=== PATIENT | female | born 1955 | race Caucasian/White ===

== ENCOUNTER 2019-03-24 05:10 | Inpatient (IN) ==
[2019-03-18 10:18] LABS: HEMOGLOBIN 14.8 g/dL (12.0-16.0); MCH 29.7 PG (27-31); MCHC 32.9 g/dL (33-37); MCV 90.4 FL (81-99); MPV 10.4 FL (7.4-10.4); RBC 4.98 XMIL (4.2-5.4); RDW 14.5 % (11.5-14.5); WBC 12.66 X1000 (4.8-10.8)
--- NOTE | 2019-03-18 10:22 | EKG Report ---
Test Performed on : 03/18/2019 10:10:44 AM Test Reason : pat Blood Pressure : / mmHG Vent. Rate : 051 BPM Atrial Rate : 051 BPM P-R Int : 198 ms QRS Dur : 082 ms QT Int : 440 ms P-R-T Axes : 033 020 024 degrees QTc Int : 405 ms Sinus bradycardia. Nonspecific ST abnormality (minimal) Borderline ECG When compared with ECG of 28-APR-2018 08:42, No significant change was found Confirmed by Chichi JEFFREY, Christiano Lopez ([id number]) on 03/19/2019 8:22:35 AM
[2019-03-18 10:51] LABS: AGAP 14; BUN 18 mg/dL (8-22); CALCIUM 9.1 mg/dL (8.8-10.2); CHLORIDE 97 mmol/L (98-107); COSMO 278; CREATININE 0.8 mg/dL (0.5-0.9); ESTIMATED GFR > 60; GLUCOSE 103 mg/dL (70-104); POTASSIUM 3.4 mmol/L (3.5-5.1); SODIUM 138 mmol/L (136-145); TCO2 27 mmol/L (25-35)
[2019-03-24] MEDS ORDERED: LR 1,000 ML ONE ×2 (05:44→06:32)
[2019-03-24] MEDS ORDERED: INVANZ 1 GM/NS 1 GM/50 ML IVPB ONE (05:44)
[2019-03-24] MEDS ORDERED: ENTEREG ONE (05:44)
[2019-03-24] MEDS ORDERED: DIPRIVAN 1% ONE (06:30)
[2019-03-24] MEDS ORDERED: ZEMURON ONE ×4 (06:30→10:01)
[2019-03-24] MEDS ORDERED: XYLOCAINE-MPF 2% ONE (06:30)
[2019-03-24] MEDS ORDERED: SENSORCAINE 0.25%/EPI 1:200,000 ONE (06:32)
[2019-03-24] MEDS ORDERED: ZOFRAN ONE (07:01)
[2019-03-24] MEDS ORDERED: OFIRMEV 1000 MG/ISOTONIC SOLN 1,000 MG/100 ML BOTTLE ONE (07:01)
[2019-03-24] MEDS ORDERED: DECADRON ONE (07:01)
[2019-03-24] MEDS ORDERED: ROBINUL ONE ×2 (07:11→10:11)
[2019-03-24 08:08] LABS: URINE SOURCE CATH
[2019-03-24 08:13] LABS: BILIRUBIN URINE NEGATIVE (NEGATIVE); BLOOD URINE NEGATIVE (NEGATIVE); COLOR YELLOW; GLUCOSE URINE NEGATIVE (NEGATIVE); KETONE URINE 20 mg/dL (NEGATIVE); LEUKOCYTES URINE NEGATIVE (NEGATIVE); NITRITE URINE NEGATIVE (NEGATIVE); PH URINE 5.5; PROTEIN URINE NEGATIVE (NEGATIVE); TURBIDITY URINE CLEAR (CLEAR); UROBILINOGEN URINE NORMAL (NORMAL)
[2019-03-24 08:14] LABS: UR EPITHELIAL CELLS <10 /HPF (<10); URINE BACTERIA NEGATIVE /HPF; URINE RBC <10 /HPF (<10); URINE WBC <10 /HPF (<10)
[2019-03-24] MEDS ORDERED: EPHEDRINE ONE (09:31)
[2019-03-24] MEDS ORDERED: NEOSTIGMINE ONE (10:12)
[2019-03-24] MEDS ORDERED: DILAUDID ONE ×2 (10:21→11:07)
[2019-03-24] MEDS: DILAUDID ONE ×2 (11:01→11:04)
[2019-03-24] MEDS ORDERED: TORADOL ONE (11:29)
[2019-03-24] MEDS ORDERED: D5 1/2 NS + KCL 20 MEQ 1,000 ML ONE (11:30)
[2019-03-24] MEDS ORDERED: TORADOL IV ONE (11:30)
[2019-03-24] MEDS: D5 1/2 NS + KCL 20 MEQ 1,000 ML IV SCH ×3 (12:30→22:23)
[2019-03-24] MEDS ORDERED: ZOFRAN IV PRN (12:30)
[2019-03-24] MEDS: MORPHINE INJ PRN ×2 (14:39→18:55)
[2019-03-24] MEDS: OFIRMEV 1000 MG/ISOTONIC SOLN 1,000 MG/100 ML BOTTLE IV SCH ×2 (14:40→22:23)
--- NOTE | 2019-03-24 14:56 | OPERATIVE NOTE ---
PROCEDURE DATE: 03/24/2019 PREOPERATIVE DIAGNOSIS: Sigmoid colon stricture secondary to repeated bouts of acute sigmoid diverticulitis. POSTOPERATIVE DIAGNOSIS: Sigmoid colon stricture secondary to repeated bouts of acute sigmoid diverticulitis. PRINCIPAL PROCEDURE: Hand-assisted robotic laparoscopic low anterior colon resection. SURGEON: Julia Mobley MD. PREPRESS OPERATOR: Dr. Misbah Sung. ANESTHESIA: General. ESTIMATED BLOOD LOSS: 100 mL. DRAINS: None. INDICATIONS: Ms. Myrna Payne is a 63-year-old white female patient of Dr. Bella, who has had a history of sigmoid diverticulitis and she has developed a mid sigmoid colon stricture that was symptomatic and resection was recommended. FINDINGS: Her sigmoid colon was adhered to her left lower quadrant sidewall because of chronic inflammation. The entire sigmoid colon appeared to be involved with inflammation. We began using the robot and laparoscope, and we mobilized the descending colon and most of the sigmoid colon, but the area that was very adhered to the pelvic inlet we had to use our hand through a hand- assisted approach to mobilize it from the pelvic sidewall. We did identify the ureter throughout the case and preserved it. We had to take some of the proximal rectum with our specimen because of the inflammation. We used a 31 mm EEA stapled anastomosis for our anastomosis. DESCRIPTION OF PROCEDURE: The patient underwent a bowel prep prior to her presentation. She received IV Invanz. She was taken to surgery where she was positioned in stirrups, and a Barrett catheter tube was placed, and her abdomen was prepped and draped in a sterile field. I began the procedure by making a small incision below the umbilicus where I could use a Veress needle to create a pneumoperitoneum. The Veress needle was removed and then I placed my trocars for the robotic-assisted approach laparoscopically to take down the sigmoid colon. I placed a 12 mm port right lower quadrant. I placed the camera port just above and to the right of the umbilicus, and I placed two 8 mm ports, 1 mid abdomen laterally and 1 in the midclavicular line left abdomen. At this point, the patient was then placed in Trendelenburg and slightly turned to the right. I removed the small bowel out of the area of the sigmoid colon. The sigmoid colon was adhered to the left anterior abdominal wall and pelvis because of its chronic inflammation. At this point, I went to the console and the robot was brought from the patient's left side and docked to our trocars. Initially I used scissors with cautery, the Cardiere and a bowel clamp, in addition to a 30 degree camera, to begin our dissection. I went from a medial to lateral approach, and I took the inferior mesenteric vessels with the LigaSure. At this point, I identified the ureter and preserved it throughout our dissection. Our dissection went from proximal to distal down to the rectum, but we were not able to remove part of the mid sigmoid colon from the sidewall, and at this point we converted to hand-assisted approach. I made a small midline incision below the umbilicus within the midline using a 15 blade scalpel. Then this incision was carried down through the skin and fatty tissue to the midline fascia, which we incised. We used a wound protector and handheld retraction. With finger fracture technique, I mobilized the mid sigmoid colon off the pelvic sidewall and was able to bring it up more towards the midline and in our wound. We did use a LigaSure to come across the remaining mesentery proximally to the descending colon, and I used a pursestring instrument to place a pursestring at the area of division of the descending sigmoid junction, and I divided the bowel using Shaw scissors. We sized the proximal colon and thought we could use a 31 mm anvil and that was placed in the descending colon and the pursestring tied around it. We took some time to remove any fat that was along our anvil using cautery and fine forceps. Once we felt the proximal bowel was ready for anastomosis, we directed our attention to removing the specimen and dissecting down to the mid rectum again using the LigaSure and cautery as needed. I came across the mid rectum using a 45 mm in length blue load TA stapler and then used a knife to transect the rectum. And the specimen was removed from the abdomen. We thoroughly irrigated the pelvis with warm saline and the saline was removed with suction. At this point, I went below and Dr. Sung was above and I directed a 31 mm EEA stapler through her anus up into the rectal stump. We mated the anvil to the EEA stapler and the anvil was brought down to our stapler and the stapler was fired. Both our rings were intact and then I used a rigid proctoscope to blow air across our anastomosis with warm saline in the pelvis, and there was no evidence of leak. There was no tension on our anastomosis, and we felt the blood supply was adequate. We did not have to do a formal takedown of the splenic flexure. It must be noted that Dr. Sung was present throughout the case, even during the robotic-assisted laparoscopic approach, and then when we converted to a hand- assisted approach. His presence was necessary for exposure and also with help with the LigaSure and removing the specimen in addition to performing the EEA anastomosis. Our midline incision was closed in layers. First layer was a running 0 Vicryl stitch that closed the peritoneum, and then the fascia was closed with a running #1 Maxon stitch. I closed our 12 mm port sites with [id number] 0 Vicryl stitches from inside the abdomen. I made sure that the bowel was in its anatomically correct position. The greater omentum was placed over the surface of the bowel prior to closure. Skin clip otr company truck driver was used to close the skin. Dressings were applied. She will go to the recovery room with Barrett catheter tube in place. We did not use an NG tube and plans are for her to go to the floor. She tolerated the procedure well. cc: Julia Mobley MD
[2019-03-24] MEDS ORDERED: ANTIVERT PO PRN (16:12)
[2019-03-24] MEDS: MIRALAX PO SCH (22:23)
[2019-03-24] MEDS: PERIDEX MT SCH (22:23)
[2019-03-24] MEDS: SINGULAIR PO SCH (22:23)
[2019-03-25] MEDS: OFIRMEV 1000 MG/ISOTONIC SOLN 1,000 MG/100 ML BOTTLE IV SCH ×2 (02:30→09:50)
[2019-03-25] MEDS: MORPHINE INJ PRN ×2 (02:31→20:28)
[2019-03-25] MEDS: D5 1/2 NS + KCL 20 MEQ 1,000 ML IV SCH ×3 (09:17→20:16)
[2019-03-25] MEDS: PERIDEX MT SCH ×2 (09:50→20:31)
[2019-03-25] MEDS: DETROL LA PO SCH (09:50)
[2019-03-25] MEDS: MIRALAX PO SCH (09:50)
[2019-03-25] MEDS: KLOR-CON PO SCH (09:50)
[2019-03-25] MEDS: TOPROL XL PO SCH (09:51)
[2019-03-25] MEDS: HYGROTON PO SCH (09:51)
[2019-03-25] MEDS ORDERED: LOVENOX SUBQ ONE (10:57)
--- NOTE | 2019-03-25 11:35 | PROGRESS NOTE ---
DATE: 03/25/2019 SUBJECTIVE: Steffanie Payne is a 63-year-old white female, patient of Dr. Bella, who has been discovered to have a midsigmoid colon stricture from repeated bouts of diverticulitis. She underwent a hand-assisted resection of her sigmoid colon and proximal rectum yesterday, with a 31 mm stapled EEA anastomosis between the descending colon and the midrectum. We felt the surgery went well. No drains were left. We did not use an NG tube. She is hospitalized on with a Barrett catheter tube still in place. She has no hematuria. She is sitting in the chair. She does have some discomfort of her abdomen. She has been n.p.o., except for ice chips. Her heart rate is 62, blood pressure is 98/54, O2 saturation is 93%, she is afebrile. She is on no antibiotics. She got IV Invanz prophylactically. PLAN: Will remove her Barrett catheter tube tomorrow. Will make sure that she gets Lovenox today. Will decrease her IV fluids from 100 to 80 mL an hour. Will start her on clear liquids. cc: Julia Mobley MD
[2019-03-25] MEDS: SINGULAIR PO SCH (20:31)
[2019-03-26] MEDS: LOVENOX SUBQ SCH (06:48)
[2019-03-26] MEDS: NORCO-10 PO PRN ×3 (07:38→21:44)
[2019-03-26] MEDS: KLOR-CON PO SCH (11:20)
[2019-03-26] MEDS: PERIDEX MT SCH ×2 (11:20→21:44)
[2019-03-26] MEDS: TOPROL XL PO SCH (11:20)
[2019-03-26] MEDS: HYGROTON PO SCH (11:20)
[2019-03-26] MEDS: DETROL LA PO SCH (11:20)
[2019-03-26] MEDS: D5 1/2 NS + KCL 20 MEQ 1,000 ML IV SCH (12:52)
[2019-03-26] MEDS ORDERED: D5 1/2 NS + KCL 20 MEQ 1,000 ML IV SCH (16:09)
--- NOTE | 2019-03-26 19:27 | PROGRESS NOTE ---
DATE: 03/26/2019 SUBJECTIVE: Ms. Myrna Payne is a 63-year-old white female who underwent a low anterior colon resection for recurrent sigmoid diverticulitis and sigmoid stricture. This was a hand-assisted resection. She has done quite well. She is now postop day 2. She is ambulating in the room. She is voiding without Barrett which was removed today. She has actually had a bowel movement and some flatus. She has tolerated 75% of her clear liquids. Her wounds are dressed. Her abdomen is mostly soft, but it is tender along the incision. Her IV is infiltrated. They are having a hard time restarting an IV and we will changes as much things to p.o. medicines as we can. We will Hep- Lock her IV fluids and see if she can stay hydrated. OBJECTIVE: Her heart rate 72, blood pressure 137/76, O2 saturation 98%. She is afebrile. cc: Julia Mobley MD
[2019-03-26] MEDS: SINGULAIR PO SCH (21:44)
[2019-03-27] MEDS: KLOR-CON PO SCH (09:24)
[2019-03-27] MEDS: TOPROL XL PO SCH (09:24)
[2019-03-27] MEDS: HYGROTON PO SCH (09:25)
[2019-03-27] MEDS: DETROL LA PO SCH (09:25)
[2019-03-27] MEDS: LOVENOX SUBQ SCH (09:25)
[2019-03-27] MEDS: PERIDEX MT SCH (09:26)
[2019-03-27] MEDS: NORCO-10 PO PRN (09:30)
[2019-03-27 11:35] VITALS: BP 136/69
--- NOTE | 2019-03-27 20:39 | DISCHARGE SUMMARY ---
ADMISSION DATE: 03/24/2019 DISCHARGE DATE: 03/27/2019 ADMITTING DIAGNOSIS: Recurrent sigmoid diverticulitis with stricture. DISCHARGE DIAGNOSIS: Recurrent sigmoid diverticulitis with stricture. PRINCIPLE PROCEDURE: Hand-assisted laparoscopic sigmoid colon resection on 03/24/2019. DISCHARGE DISABILITIES: Full. DISCHARGE DISPOSITION: She will return to our outpatient office this coming . DISCHARGE MEDICATIONS: She is to return to her home medication. I also gave her [place] 10 for pain. DISCHARGE DIET: Regular. HOSPITAL COURSE: Ms Myrna Payne is a 63-year-old white female who is a patient of Dr. Bella. Recently she underwent colonoscopy which documented a stricture midsigmoid colon. She has had a history of recurrent diverticulitis. Resection was recommended. She underwent a bowel prep at home. She presented on the day of surgery. She received IV Invanz and went to the operating room. She was placed in stirrups after general anesthesia. Barrett catheter tube was used. We did not use an NG tube. We did a robotic-assisted hand-assisted sigmoid colon resection with a 31 mm EEA stapled anastomosis between the descending colon and the rectum. We felt that the operation went well. She had ongoing inflammation involving her midsigmoid colon and it was adhered to her left pelvic sidewall. We left no drains at the time of surgery. Her Barrett catheter tube was left in place. She went to the recovery room and then to the [address] [place] [address] [place]. She was good about getting up and out of bed and we quickly advanced her diet to liquids. Postop day 2 we removed her Barrett catheter tube. We advanced her diet and on postop day 3, she was taking full liquids. She had several bowel movements. She was passing flatus. She was afebrile. She was able to sit in the chair well and move around her room. She lives in [place] and her was comfortable taking her home with followup in my outpatient offices next . She knows to contact us with any abdominal distention or pain, fever or nausea and vomiting. cc: Nabil Bella MD
== END 2019-03-27 11:40 | disposition home or self-care (01) | DRG 330 ==
LOC: SURHOLD 05:10 → 4N 08:06
PROVIDERS: ADMIT Surgery; ATTEND Surgery